=== PATIENT | male | born 1965 | race Caucasian/White ===

== ENCOUNTER 2024-04-25 14:30 | Outpatient (CLI) | payer BC ==
[2024-04-25 16:54] LABS: Hematocrit 44.4 % (38.8-50.0); Hemoglobin 15.3 g/dL (13.5-17.5); Mean Corpuscular HGB CONC 34.5 g/dL (32.0-36.0); Mean Corpuscular Hemoglobin 34.1 pg (27.0-33.0); Mean Corpuscular Volume 98.9 fL (81.2-95.1); Mean Platelet Volume 11.3 fL (7.4-10.4); Platelet Count 201 10x3/uL (150-450); RBC Distribution Width 12.4 % (11.5-14.5); Red Blood Cell (RBC) Count 4.49 10x6/uL (4.32-5.72)
[2024-04-25 17:17] LABS: Anion Gap 14 mmol/L (10-20); BUN (Urea Nitrogen) 12 mg/dL (8.4-25.7); Calc. Creatinine Clearance 0 mL/min (70-130); Calcium 9.3 mg/dL (7.8-10.44); Carbon Dioxide 24 mmol/L (22-29); Chloride 107 mmol/L (98-107); Estimated GFR 89; Glucose 105 mg/dL (70-105); Sodium 141 mmol/L (136-145)
== END 2024-04-25 14:31 | disposition home or self-care (01) ==
LOC: CSHLAB 14:30
PROVIDERS: ATTEND Surgery
DX: Z01.818 Encounter for other preprocedural examination (principal); K42.0 Umbilical hernia with obstruction, without gangrene
CPT/HCPCS: 80048; 85027; 93005; 93010

== ENCOUNTER 2024-04-26 07:42 | Day surgery (SDC) | payer BC ==
[2024-04-26] MEDS ORDERED: EPINEPHrine 1 MG/ML VIAL ONE (08:10)
[2024-04-26] MEDS ORDERED: Bupivacaine PF 0.5% 30 ML VIAL ONE (08:11)
[2024-04-26] MEDS ORDERED: Lidocaine 2% PF 5 ML VIAL ONE (08:51)
[2024-04-26] MEDS ORDERED: Lidocaine 4% PF 5 ML AMP ONE (08:54)
[2024-04-26] MEDS ORDERED: PROPOFOL 20 ML ONE (08:55)
[2024-04-26] MEDS ORDERED: fentaNYL 50 mcg/mL 1 mL Vial ONE ×2 (09:29→09:54)
[2024-04-26] MEDS ORDERED: Ondansetron PF 4 MG/2 ML Vial ONE (09:30)
[2024-04-26] MEDS ORDERED: Dexamethasone 4 mg/ml Vial ONE (09:30)
[2024-04-26] MEDS ORDERED: CEFAZOLIN 2 GM VIAL ONE (09:33)
[2024-04-26] MEDS ORDERED: Dexamethasone 20 MG/5 ML VIAL ONE (09:51)
[2024-04-26] MEDS ORDERED: SUGAMMADEX SODIUM 200 MG/2 ML VIAL ONE (10:10)
[2024-04-26] MEDS ORDERED: HYDROcodone/Acetaminophen 5/325 mg Tablet ONE (11:22)
== END 2024-04-26 12:15 | disposition home or self-care (01) ==
LOC: CSHSDC 07:42
PROVIDERS: ATTEND Surgery
PROC: 0WUF0JZ Supplement Abdominal Wall with Synthetic Substitute, Open Approach (ICD-10-PCS; principal; 2024-04-26)
DX: K42.0 Umbilical hernia with obstruction, without gangrene (principal); E83.10 Disorder of iron metabolism, unspecified; I10 Essential (primary) hypertension; K75.81 Nonalcoholic steatohepatitis (NASH)
CPT/HCPCS: 88302; A6258; J0171; J0665; J1100; J2001; J2405; J2704; J3010